=== PATIENT | male | born 1975 | race Caucasian/White ===

== ENCOUNTER 2017-07-26 11:28 | Emergency (ER) | payer BC ==
[2017-07-26 13:27] VITALS: BP 163/118
[2017-07-26] MEDS ORDERED: Fluorescein Sodium TOPICAL* 1 MG TEST OPHTHALMIC ONE (13:45)
[2017-07-26] MEDS ORDERED: BSS OPTH.SOL* BTL OPHTHALMIC ONE (13:45)
--- NOTE | 2017-07-26 14:00 | UC ---
Eye Complaint HPI - HPI Summary HPI Summary: Pt here c/o FB in left eye. he was climbing up tree to put in a tree stand and feels like a piece of bark lodged into the upper inner corner of eye. does not have pain but can feel that there is something lodged in his eye. no pain now, no change in vision. no d/c. he has white coat HTN that is watched closely by his PCP. he has a home monitor that checks and always b/w 120s-130s/70s-90. feels well. - History of Current Complaint Chief Complaint: UCEye Stated Complaint: LEFT EYE COMPLAINT Time Seen by Provider: 07/26/17 13:45 - Allergies/Home Medications Allergies/Adverse Reactions: Allergies Allergy/AdvReac Type Severity Reaction Status Date / Time Hydrocodone Allergy Nausea Verified 07/26/17 13:19 PMH/Surg Hx/FS Hx/Imm Hx Previously Healthy: Yes - Surgical History Surgical History: None - Family History Known Family History: Positive: Hypertension - Social History Alcohol Use: Occasionally Substance Use Type: None Smoking Status (MU): Never Smoked Tobacco - Immunization History Most Recent Tetanus Shot: unknown Review of Systems Constitutional: Negative Skin: Negative Eyes: Other - eye pain ENT: Negative Respiratory: Negative Cardiovascular: Negative Gastrointestinal: Negative Genitourinary: Negative Motor: Negative Neurovascular: Negative Musculoskeletal: Negative Neurological: Negative Psychological: Negative Is Patient Immunocompromised?: No All Other Systems Reviewed And Are Negative: Yes Physical Exam Triage Information Reviewed: Yes Appearance: Well-Appearing, No Pain Distress, Well-Nourished Vital Signs: Initial Vital Signs Temp 98.4 F 07/26/17 13:06 Pulse 52 07/26/17 13:06 Resp 18 07/26/17 13:06 BP 163/118 07/26/17 13:06 Pulse Ox 100 07/26/17 13:06 Vital Signs Reviewed: Yes Eyes: Positive: Conjunctiva Clear, Other: - left eyelid was everted and ~3mm firm FB was removed from medial left upper eyelid. ENT Exam: Normal ENT: Positive: Pharynx normal, TMs normal Dental Exam: Normal Respiratory: Positive: Lungs clear, Normal breath sounds Cardiovascular Exam: Normal Cardiovascular: Positive: RRR, No Murmur, Pulses Normal Eye Complaint Course/Dx - Course Course Of Treatment: Rpt BP has normalized. had complete relief withremoval of FB. wood's lamp with flourescein does not reveal scratch. explained rx fo rabx eye gtts. explained possible need for prednisone gtts b/c possibel spores with FB from tree, however prednisone gtts can pose risk. I will defer management with prednisone to director of recruiting. He prefers to f/u with Dr Khoury b/c of contact going to her. TDap updated today. he is agreeable. - Differential Dx/Diagnosis Differential Diagnosis/HQI/PQRI: Corneal Abrasion, Foreign Body, Keratitis Provider Diagnoses: left eye foreign body Discharge - Discharge Plan Condition: Stable Disposition: HOME Prescriptions: Gentamicin 0.3% OPHTH.SOLN* 1 drop LEFT EYE Q4H #1 btl Patient Education Materials: Diphtheria Tetanus and Pertussis Vaccine (ED), Eye Foreign Body (ED) Referrals: Tommy Grant MD [Primary Care Provider] - Additional Instructions: Follow up with Dr Janna Meneses, eye doctor in 2 days [phone]. We talked about your elevated blood pressure and diagnosis of white coat hypertension. continue to follow your BPs closely as directed by your PCP.
[2017-07-26] MEDS ORDERED: Tetan/Diph/Pertus SYR(Tdap)* 0.5 ML SYR(BOOSTRIX) use SYR IM ONE (14:15)
== END 2017-07-26 14:31 | disposition home or self-care (01) ==
LOC: UCCORT 11:28
DX: T15.92XA Foreign body on external eye, part unspecified, left eye, initial encounter (principal); W22.8XXA Striking against or struck by other objects, initial encounter; Z88.6 Allergy status to analgesic agent
CPT/HCPCS: 65205; 90471; 90715; 99212; A9270-GY; G0463

== ENCOUNTER 2018-12-19 12:18 | Emergency (ER) | payer BC ==
[2018-12-19 13:10] VITALS: BP 136/85
--- NOTE | 2018-12-19 13:18 | UC ---
Respiratory Complaint HPI - HPI Summary HPI Summary: 43 yo male ill x 1 week nasal congestion post nasal drip ?fever no CP or SOB - History of Current Complaint Chief Complaint: UCRespiratory Stated Complaint: COUGH, CONGESTION Time Seen by Provider: 12/19/18 13:13 Hx Obtained From: Patient Severity Initially: Mild Severity Currently: Moderate Pain Intensity: 0 Pain Scale Used: 0-10 Numeric Character: Cough: Productive Aggravating Factors: Nothing Alleviating Factors: Nothing Associated Signs And Symptoms: Positive: Fever, Nasal Congestion, Sinus Discomfort - Allergies/Home Medications Allergies/Adverse Reactions: Allergies Allergy/AdvReac Type Severity Reaction Status Date / Time No Known Allergies Allergy Verified 12/19/18 13:07 PMH/Surg Hx/FS Hx/Imm Hx Previously Healthy: Yes Respiratory History: Bronchitis, Pneumonia - Surgical History Surgical History: None - Family History Known Family History: Positive: Hypertension, Non-Contributory - Social History Alcohol Use: Weekly Substance Use Type: None Smoking Status (MU): Never Smoked Tobacco - Immunization History Most Recent Tetanus Shot: 07/26/17 Review of Systems All Other Systems Reviewed And Are Negative: Yes Constitutional: Positive: Fever Skin: Positive: Negative Eyes: Positive: Negative ENT: Positive: Nasal Discharge, Sinus Congestion, Sinus Pain/Tenderness Respiratory: Positive: Cough Cardiovascular: Positive: Negative Gastrointestinal: Positive: Negative Genitourinary: Positive: Negative Motor: Positive: Negative Neurovascular: Positive: Negative Musculoskeletal: Positive: Negative Neurological: Positive: Negative Psychological: Positive: Negative Physical Exam Triage Information Reviewed: Yes Appearance: Well-Appearing, No Pain Distress, Well-Nourished Vital Signs: Initial Vital Signs Temp 98.3 F 12/19/18 13:06 Pulse 71 12/19/18 13:06 Resp 20 12/19/18 13:06 BP 136/85 12/19/18 13:06 Pulse Ox 99 12/19/18 13:06 Eye Exam: Normal Eyes: Positive: Conjunctiva Clear ENT: Positive: Hearing grossly normal, Nasal congestion, Nasal drainage, Uvula midline. Negative: Tonsillar swelling, Tonsillar exudate, Trismus, Muffled voice, Hoarse voice, Dental tenderness, Sinus tenderness Neck: Positive: Supple, Nontender, No Lymphadenopathy Respiratory: Positive: No respiratory distress, No accessory muscle use, Wheezing - with forced expiration Cardiovascular: Positive: RRR, No Murmur Musculoskeletal: Positive: ROM Intact, No Edema Neurological: Positive: Alert Psychological Exam: Normal Skin Exam: Normal Respiratory Course/Dx - Differential Dx/Diagnosis Provider Diagnosis: Bronchitis, acute, Sinusitis, acute Discharge - Sign-Out/Discharge Documenting (check all that apply): Patient Departure All imaging exams completed and their final reports reviewed: No Studies - Discharge Plan Condition: Stable Disposition: HOME Prescriptions: Amoxicillin PO (*) [Amoxicillin 875 MG (*)] 875 mg PO BID #14 tab Fluticasone NASAL SPRAY 50MCG* [Flonase NASAL SPRAY 50MCG*] 2 spray BOTH NARES BID #1 btl Patient Education Materials: Sinusitis (ED), Acute Bronchitis (ED) Referrals: Tommy Grant MD [Primary Care Provider] - 6 Days (if not improved) - Billing Disposition and Condition Condition: STABLE Disposition: Home
== END 2018-12-19 13:33 | disposition home or self-care (01) ==
LOC: UCCORT 12:18
DX: J01.90 Acute sinusitis, unspecified (principal); J20.9 Acute bronchitis, unspecified
CPT/HCPCS: 99212; G0463